=== PATIENT | female | born 1955 | race Caucasian/White ===

== ENCOUNTER 2018-03-02 17:59 | Emergency (ER) | payer OTHER ==
[~2018-03-02 17:59] MED LIST: Gadobenate Dimeglumine 529 MG/1 ML (20ML VIAL) ONE
[2018-03-02] MEDS ORDERED: Dexamethasone 10 MG/ML VIAL ONE (18:26)
[2018-03-02 18:48] LABS: #Basophils 0.1 thou/uL (0.0-0.2); #Eosinphils 0.1 thou/uL (0.0-0.7); #Lymphocytes 1.7 thou/uL (1.20-3.40); #Monocytes 1.2 thou/uL (0.11-0.59); %Basophils 0.7 % (0.0-1.0); %Eosinophils 0.6 % (0.0-10.0); %Monocytes 8.2 % (0.0-10.0); %Neutrophils 78.5 % (42.0-75.0); Hemoglobin 13.2 g/dL (12.0-16.0); Mean Corpuscular HGB CONC 33.6 g/dL (32.0-36.0); Mean Corpuscular Volume 89.3 fL (78.0-98.0); Mean Platelet Volume 6.3 fL (7.4-10.4); Platelet Count 279 thou/uL (130-400); Red Blood Cell (RBC) Count 4.41 mill/uL (4.20-5.40); White Blood Cell (WBC) Count 14.1 thou/uL (4.8-10.8)
[2018-03-02 19:05] LABS: ALT (SGPT) 16 U/L (8-55); AST (SGOT) 26 U/L (5-34); Albumin 4.5 g/dL (3.4-4.8); Alkaline Phosphatase 73 U/L (40-150); Anion Gap 16 mmol/L (10-20); BUN (Urea Nitrogen) 9 mg/dL (9.8-20.1); Bilirubin, Total 0.5 mg/dL (0.2-1.2); Calc. Creatinine Clearance 0 mL/min (70-130); Calcium 9.6 mg/dL (7.8-10.44); Carbon Dioxide 23 mmol/L (23-31); Chloride 97 mmol/L (98-107); Estimated GFR-MDRD Greater than 90; Glucose 76 mg/dL (80-115); Potassium 3.9 mmol/L (3.5-5.1); Protein, Total 7.5 g/dL (6.0-8.3); Sodium 132 mmol/L (136-145)
[2018-03-02 19:06] LABS: CKMB 1.2 ng/mL (0-6.6); Troponin I Less than 0.010 ng/mL (< 0.028)
[2018-03-02 19:43] LABS: Bilirubin Negative (Negative); Blood, Urine Negative (Negative); Clarity Clear (Clear); Glucose, Urine (Dipstick) Negative (Negative); Leukocyte Negative (Negative); Nitrite Negative (Negative); Protein, Urine (Dipstick) Negative (Neg-Trace); Urobilinogen 0.2 mg/dL (0.2-1.0)
--- NOTE | 2018-03-02 22:40 | CT ---
POST CONTRAST SOFT TISSUE NECK CT: HISTORY: Fever. Losing her voice. Fatigue. Neck pain. COMPARISON: None. TECHNIQUE: Post contrast soft tissue neck CT is performed in the axial plane. Reformatted images are performed. FINDINGS: The visualized brain parenchyma is unremarkable. Bilateral ocular lenses are appropriately located. Both globes are intact, and retrobulbar fat is preserved. Mucus retention cyst in the left maxillary sinus is suspected. Adequate aeration of the remaining pa ranasal sinuses and mastoid air cells. There is expected mucosal enhancement of the nasopharynx and oral cavity. Additional expected mucosa l enhancement of the lingual tonsils is noted. There is no evidence of an abscess. No definite mass . Midline fatty raphe of the tongue appears to be preserved. Evaluation of the oral cavity is limit ed by dental amalgam artifact. The epiglottis has a normal caliber. Pre-epiglottic fat is preserved . There is no prevertebral soft tissue swelling. No high grade central canal stenosis. Varying degrees of foraminal stenosis due to degenerative tovar ge. Grossly, the great vessels of the neck are patent. Symmetric attenuation of the sternocleidomastoid muscles. Symmetric attenuation of the parotid and submandibular glands. Heterogeneity of the right thyroid lobe, incompletely evaluated. No evidence of lymphadenopathy by size criteria. The upper mediastinum and lung apices are unremarkable. IMPRESSION: 1. No evidence of a soft tissue neck mass or inflammatory change/abscess. 2. No evidence of suspicious lymphadenopathy. 3. Heterogeneous right thyroid lobe. Nonemergent thyroid ultrasound. POS: [facility]
== END 2018-03-02 20:06 | disposition home or self-care (01) ==
LOC: SCSER 17:59
DX: J02.9 Acute pharyngitis, unspecified (principal); F32.9 Major depressive disorder, single episode, unspecified; Z79.899 Other long term (current) drug therapy
CPT/HCPCS: 70492; 80053; 81003; 82553; 83605; 84484; 85025; 87081; 87430; 87480; 87510; 87660; 88142; 93005; 96374; A9579; G0123; J1100

== ENCOUNTER 2018-03-12 12:31 | Outpatient (CLI) | payer OTHER ==
--- NOTE | 2018-03-19 09:54 | MMO ---
BILATERAL MAMMOGRAMS: HISTORY: Screening mammography. COMPARISON: 09/21/2010 FINDINGS: Scattered fibroglandular densities. No dominant mass or suspicious calcifications. The study was ev aluated with the assistance of computer aided detection. IMPRESSION: BI-RADS Category 1-Negative. Suggest routine followup. POS: [facility]
== END 2018-03-12 12:32 | disposition home or self-care (01) ==
LOC: SCSMAMMO 12:31
PROVIDERS: ATTEND Family Medicine
DX: Z12.31 Encounter for screening mammogram for malignant neoplasm of breast (principal)
CPT/HCPCS: 77067

== ENCOUNTER 2018-11-30 15:28 | Observation (INO) | payer OTHER ==
[2018-11-30 16:04] LABS: #Basophils 0.1 thou/uL (0.0-0.2); #Eosinphils 0.1 thou/uL (0.0-0.7); #Lymphocytes 1.6 thou/uL (1.20-3.40); #Monocytes 0.7 thou/uL (0.11-0.59); #Neutrophils 4.2 thou/uL (1.40-6.50); %Basophils 1.1 % (0.0-1.0); %Eosinophils 1.2 % (0.0-10.0); %Lymphocytes 24.2 % (21.0-51.0); %Monocytes 10.7 % (0.0-10.0); %Neutrophils 62.8 % (42.0-75.0); Hemoglobin 12.2 g/dL (12.0-16.0); Mean Corpuscular HGB CONC 30.8 g/dL (32.0-36.0); Mean Corpuscular Hemoglobin 29.8 pg (27.0-31.0); Mean Corpuscular Volume 96.5 fL (78.0-98.0); Mean Platelet Volume 5.6 fL (7.4-10.4); Platelet Count 249 thou/uL (130-400); RBC Distribution Width 12.2 % (11.5-14.5); Red Blood Cell (RBC) Count 4.09 mill/uL (4.20-5.40); White Blood Cell (WBC) Count 6.6 thou/uL (4.8-10.8)
[2018-11-30 16:19] LABS: ALT (SGPT) 11 U/L (8-55); AST (SGOT) 19 U/L (5-34); Albumin 4.1 g/dL (3.4-4.8); Alkaline Phosphatase 68 U/L (40-150); Anion Gap 10 mmol/L (10-20); BUN (Urea Nitrogen) 22 mg/dL (9.8-20.1); Bilirubin, Total 0.3 mg/dL (0.2-1.2); Calc. Creatinine Clearance 0 mL/min (70-130); Calcium 8.6 mg/dL (7.8-10.44); Carbon Dioxide 28 mmol/L (23-31); Chloride 102 mmol/L (98-107); Estimated GFR-MDRD Greater than 90; Globulin 2.7 g/dL (2.4-3.5); Glucose 80 mg/dL (80-115); Lipase 67 U/L (8-78); Potassium 3.7 mmol/L (3.5-5.1); Protein, Total 6.8 g/dL (6.0-8.3); Sodium 136 mmol/L (136-145)
[2018-11-30] MEDS ORDERED: Aspirin Chewable 81 MG TAB ONE (16:35)
--- NOTE | 2018-11-30 16:42 | CT ---
BRAIN CT WITHOUT IV CONTRAST: History: Double vision, altered mental status. FINDINGS: No focal mass or midline shift. No intra or extraaxial hemorrhage. Sinuses and mastoids demonstrate s ome mild left maxillary sinus mucosal disease. The mastoids are clear. IMPRESSION: No significant acute intracranial process. No mass or bleed. Mild left maxillary sinus mucosal diseas e. POS: [facility]
[2018-11-30] MEDS ORDERED: cloNIDine 0.1 MG TAB PO PRN (19:59)
[2018-11-30] MEDS ORDERED: Senokot S 8.6-50 MG TAB PO PRN ×2 (19:59)
[2018-11-30] MEDS ORDERED: Benzonatate 100 MG CAP PO PRN (19:59)
[2018-11-30] MEDS ORDERED: Diabetic Tussin 200 MG/10 ML UDCUP PO PRN (19:59)
[2018-11-30] MEDS ORDERED: Ondansetron PF 4 MG/2 ML Vial IVP PRN ×2 (19:59)
[2018-11-30] MEDS ORDERED: hydrALAZINE 20 MG/ML VIAL SLOW IVP PRN (19:59)
[2018-11-30] MEDS ORDERED: Acetaminophen 325 MG TAB PO PRN (19:59)
[2018-11-30] MEDS ORDERED: Nitroglycerin 0.4 MG TAB (25 Tab Bottle) SL PRN (19:59)
[2018-11-30] MEDS ORDERED: Bisacodyl 5 MG TAB PO PRN ×2 (19:59)
[2018-11-30] MEDS ORDERED: Sodium Chloride 0.9% 1,000 ML IV SCH (20:00)
[2018-11-30] MEDS: Famotidine 20 MG TAB PO SCH (20:43)
[2018-11-30] MEDS ORDERED: Rosuvastatin 20 MG TAB PO SCH (21:00)
[2018-11-30] MEDS ORDERED: Escitalopram Oxalate 10 mg Tablet PO SCH (21:00)
[2018-11-30] MEDS ORDERED: Zolpidem Tartrate 5 MG TAB PO SCH (21:00)
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
[2018-11-30 23:22] VITALS: BMI 20.1
[2018-12-01 05:47] LABS: #Basophils 0.1 thou/uL (0.0-0.2); #Eosinphils 0.1 thou/uL (0.0-0.7); #Lymphocytes 1.7 thou/uL (1.20-3.40); #Monocytes 0.5 thou/uL (0.11-0.59); %Eosinophils 2.6 % (0.0-10.0); %Monocytes 9.9 % (0.0-10.0); %Neutrophils 55.6 % (42.0-75.0); Hemoglobin 12.2 g/dL (12.0-16.0); Mean Corpuscular HGB CONC 32.5 g/dL (32.0-36.0); Mean Corpuscular Hemoglobin 31.7 pg (27.0-31.0); Mean Corpuscular Volume 97.5 fL (78.0-98.0); Mean Platelet Volume 6.4 fL (7.4-10.4); Platelet Count 253 thou/uL (130-400); RBC Distribution Width 11.3 % (11.5-14.5); Red Blood Cell (RBC) Count 3.84 mill/uL (4.20-5.40); White Blood Cell (WBC) Count 5.3 thou/uL (4.8-10.8)
[2018-12-01 06:00] LABS: Anion Gap 10 mmol/L (10-20); BUN (Urea Nitrogen) 15 mg/dL (9.8-20.1); Calc. Creatinine Clearance 68 mL/min (70-130); Calcium 8.5 mg/dL (7.8-10.44); Carbon Dioxide 27 mmol/L (23-31); Cardiac Risk 3.5 (Less than 4.5); Chloride 104 mmol/L (98-107); Cholesterol 187 mg/dl (< 200 Desired); Estimated GFR-MDRD Greater than 90; Glucose 94 mg/dL (80-115); HDL Cholesterol 53 mg/dL (>60 Neg Risk); LDL Cholesterol, Calculated 94 mg/dL; Potassium 4.4 mmol/L (3.5-5.1); Sodium 137 mmol/L (136-145); Triglycerides 201 mg/dL (Less than 150)
[2018-12-01 06:51] LABS: Bilirubin Negative (Negative); Blood, Urine Negative (Negative); Clarity CLEAR (Clear); Glucose, Urine (Dipstick) Negative (Negative); Leukocyte Negative (Negative); Nitrite Negative (Negative); Protein, Urine (Dipstick) Negative (Neg-Trace); Specific Gravity, Urine 1.008 (1.002-1.036); Urobilinogen 0.2 mg/dL (0.2-1.0)
[2018-12-01 06:54] LABS: Bacteria/HPF None Seen HPF (None Seen); Hyaline Casts/LPF 0-3 HYALINE CAST LPF (0-3 Hyaline); RBC/HPF 0-3 HPF (0-3); Squamous Epithelial None Seen HPF (0-3); WBC/HPF 0-3 HPF (0-3)
[2018-12-01 06:59] LABS: Urine Culture Reflex No No
--- NOTE | 2018-12-01 08:27 | ULT ---
BILATERAL CAROTID DUPLEX ULTRASOUND: HISTORY: TIA TECHNIQUE: Grayscale, color-flow and spectral Doppler ultrasound imaging of the extracranial carotid artery syst ems was performed bilaterally. FINDINGS: No significant atherosclerotic plaque is seen within the carotid arteries bilaterally. There is no hemodynamically significant stenosis in the bilateral internal carotid arteries according to the peak systolic velocities and the ICA/CCA ratios. The peak systolic velocity in the right ICA measures 95.8 cm/s. The peak systolic velocity in the left ICA measures 88.4 cm/s. The right IC A/CCA ratio is 1.23 with left ICA/CCA ratio of 1.15. Vertebral arteries: Antegrade flow is demonstrated in the vertebral arteries bilaterally. IMPRESSION: No hemodynamically significant stenosis of bilateral internal carotid arteries.
[2018-12-01] MEDS ORDERED: Enoxaparin Sodium 40 MG/0.4 ML SYRINGE SC SCH (09:00)
[2018-12-01] MEDS ORDERED: Aspirin 325 mg Enteric Coated Tablet PO SCH (09:00)
[2018-12-01] MEDS ORDERED: Amlodipine 5 MG TAB PO SCH (09:00)
[2018-12-01] MEDS: Famotidine 20 MG TAB PO SCH (10:55)
[2018-12-01 11:54] VITALS: BP 183/102; TEMP 98.1
--- NOTE | 2018-12-01 12:06 | MRI ---
Exam: Brain MRI with and without contrast HISTORY: Transient ischemic attack. Comparison blurred vision and confusion. COMPARISON: None FINDINGS: Gradient echo sequence: No hemorrhage Calvarium: Appropriate T1 marrow signal intensity Midline brain parenchyma: Unremarkable Cerebrum:No parenchymal mass, mass effect or midline shift. Age-appropriate atrophy. Cortical chandra-wh ite matter differentiation is preserved. T2 and FLAIR white matter hyperintensities due to chronic small vessel ischemic changes of the white matter. Ventricles: No evidence of hydrocephalus. Sinuses and mastoid air cells: Small mucous retention cyst in the left maxillary sinus. Diffusion: Central arterial flow is maintained. Absent restricted diffusion. Postcontrast images: No pathologic enhancement of the brain parenchyma. Incidental developmental veno us anomaly noted in the right occipital lobe. IMPRESSION: 1. Absent restricted diffusion. No acute infarct 2. Age-appropriate atrophy. Chronic small vessel ischemic changes of the white matter are present 3. No pathologic enhancement of the brain parenchyma.
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
== END 2018-12-01 15:56 | disposition home or self-care (01) ==
LOC: SCSER 15:28 → 2SE 18:53
PROVIDERS: ADMIT Internal Medicine; ATTEND Internal Medicine
DX: H53.8 Other visual disturbances (principal); H53.2 Diplopia; R41.0 Disorientation, unspecified; F41.9 Anxiety disorder, unspecified; G47.00 Insomnia, unspecified; F32.9 Major depressive disorder, single episode, unspecified; I10 Essential (primary) hypertension; E78.2 Mixed hyperlipidemia; Z85.828 Personal history of other malignant neoplasm of skin; Z79.899 Other long term (current) drug therapy
CPT/HCPCS: 36415; 70450; 70553; 80048; 80053; 80061; 81001; 83690; 84484; 85025; 93005; 93880; 96360; 96361; 96372; G0378; J1650